=== PATIENT | female | born 1990 | race African-American/Black ===

== ENCOUNTER 2022-07-07 21:17 | Inpatient (IN) | payer MEDICAID ==
[~2022-07-07] VITALS: Ht 175.3 cm; Wt 65.8 kg
--- NOTE | 2022-07-07 22:08 | NUR ---
[id number]. BILAT ARM, BILAT LEG AND SPINE NUMBNESS X 3 DAYS. PT A/OX4. TOLERATING R/A WELL WITH NO RESP DISTRESS. SAFETY MEASURES IN PLACE.
--- NOTE | 2022-07-07 22:29 | NUR ---
DR EMMIE PICHARDO AT PT'S BEDSIDE FOR EVAL
[2022-07-07] MEDS ORDERED: MORPHINE SULFATE INJ 4 MG/ML DISP.SYRIN ONE (22:43)
[2022-07-07] MEDS ORDERED: methylPREDNISolone SOD SUCC 125 MG/2ML VIAL ONE (22:43)
[2022-07-07] MEDS ORDERED: ONDANSETRON HCL/PF 4 MG/2 ML VIAL ONE (22:43)
[2022-07-07] MEDS ORDERED: MORPHINE SULFATE INJ 2 MG/ML DISP.SYRIN IV ONE (23:00)
[2022-07-07] MEDS ORDERED: ONDANSETRON HCL/PF 4 MG/2 ML VIAL IVP ONE (23:00)
[2022-07-07] MEDS ORDERED: methylPREDNISolone SOD SUCC 125 MG/2ML VIAL IV ONE (23:00)
--- NOTE | 2022-07-07 23:10 | NUR ---
RFA #20G S/L BLOOD AND COVID ANTIGEN SWAB COLLECTED AND SENT TO LAB
--- NOTE | 2022-07-07 23:10 | NUR ---
PROVIDED PT WITH URINE CUP; NOT ABLE TO URINATE AT THIS TIME.
[2022-07-07 23:17] LABS: BASOPHILS # (AUTO) 0.1 K/uL (0.0-0.2); BASOPHILS % (AUTO) 0.9 % (0.0-2.0); EOSINOPHILS % (AUTO) 2.2 % (0.0-6.0); HEMATOCRIT 36 % (33-45); HEMOGLOBIN 11.1 g/dL (11.5-14.8); LYMPHOCYTES # (AUTO) 4.3 K/uL (0.8-4.8); LYMPHOCYTES % (AUTO) 30.8 % (20.0-44.0); MEAN CORPUSCULAR HGB CONC 31 g/dl (31.0-36.0); MEAN CORPUSCULAR VOLUME 86 fL (82-100); MONOCYTES # (AUTO) 1.1 K/uL (0.1-1.30); MONOCYTES % (AUTO) 8.1 % (2.0-12.0); PLATELET COUNT (AUTO) 253 K/uL (150-450); RED BLOOD CELL COUNT(AUTO) 4.19 MIL/uL (4.0-5.2); WHITE BLOOD COUNT (AUTO) 13.8 K/uL (4.3-11.0)
[2022-07-07 23:27] LABS: CALCIUM, SERUM 9.1 mg/dL (8.5-10.1); CREATININE 0.6 mg/dL (0.6-1.3); POTASSIUM 3.4 mmol/L (3.5-5.1)
[2022-07-07 23:37] LABS: ALBUMIN 2.8 g/dL (3.4-5.0); BILIRUBIN,DIRECT 0.2 mg/dL (0.0-0.2); BILIRUBIN,TOTAL 0.4 mg/dL (0.2-1.0); TOTAL PROTEIN, SERUM 6.3 g/dL (6.4-8.2)
[2022-07-08] MEDS ORDERED: ACETAMINOPHEN 325 MG TABLET PO PRN
[2022-07-08] MEDS ORDERED: Z GUARD REMEDY 4 OZ OINT TP PRN
[2022-07-08] MEDS ORDERED: ONDANSETRON HCL/PF 4 MG/2 ML VIAL IVP PRN
[2022-07-08] MEDS ORDERED: MAGNESIUM HYDROXIDE 30 ML UDC PO PRN
--- NOTE | 2022-07-08 00:13 | NUR ---
ZHANG CAMPA PROBATION OFFICER AT PT'S BEDSIDE FOR EVAL
--- NOTE | 2022-07-08 00:27 | NUR ---
LOG CHAIN WORKER AT PT'S BEDSIDE
--- NOTE | 2022-07-08 00:48 | NUR ---
REPORT GIVEN TO BOOKER BULL FOR KATHLEEN
[2022-07-08] MEDS ORDERED: POTASSIUM CHLORIDE 10 MEQ TABLET.SA PO ONE (00:49)
--- NOTE | 2022-07-08 01:56 | NUR ---
PT BEING TRANSPORTED TO UNIT ON [facility] BY EMT. PT IS IN STABLE CONDITION FOR TRASNPORT. NAD NOTED.
[2022-07-08 02:00] VITALS: BP 113/69
[2022-07-08] MEDS: ENOXAPARIN SODIUM 40 MG/0.4 ML DISP.SYRIN SQ SCH ×2 (02:18→22:04)
[2022-07-08] MEDS: HYDROCODONE/APAP 5/325MG TABLET PO PRN ×2 (02:56→22:05)
--- NOTE | 2022-07-08 03:00 | NUR ---
MS CONSUMER CREDIT COUNSELOR NOTE PATIENT ARRIVED ON UNIT FROM ER AT ABOUT 0205. PATIENT ALERT/ORIENTED X 4, SOME FORGETFULNESS WHEN ANSWERING ADMISSION/MEDICAL HEALTH HISTORY QUESTIONS. PATIENT CAN'T REMEMBER IF SHE GOT FLU VACCINE OR DATES FOR COVID VACCINE. PATIENT C/O OF 7/10 LOW BACK PAIN, NORCO 5-325 MG GIVEN ORDERED. PATIENT STABLE ON RA, NO S/S OF DISTRESS OR SOB NOTED, BREATHING EVEN AND UNLABORED. PATIENT REFUSED STRAIGHT CATH FOR URINE COLLECTION, PUREWICK PLACED ON PATIENT. PATIENT IV ACCESS ON RIGHT WRIST #20G INTACT AND FLUSHING WELL, SALINE LOCKED. PATIENT NOTED WITH BILATERAL HAND RASH, WOUND PHOTO TAKEN AND PLACED IN CHART. PATIENT BELONGINGS DOCUMENTED AND SHEET PLACED IN CHART. ORIENTED PATIENT TO ROOM AND HOW TO USE CALL LIGHT. SAFETY MEASURES IN PLACE: CALL LIGHT WITHIN REACH, SIDE RAILS UP X 2, BED LOCKED IN LOWEST POSITION, BED ALARM ON. WILL CONTINUE TO MONITOR PATIENT
--- NOTE | 2022-07-08 03:58 | NUR ---
MS RN NOTE URINE SAMPLE COLLECTED FOR URINALYSIS AND TEST
--- NOTE | 2022-07-08 06:22 | NUR ---
MS RN CLOSING NOTE PATIENT SLEEPING IN BED, ALERT/ORIENTED X 3, PT ABLE TO MAKE NEEDS KNOWN. PT STABLE ON RA, NO S/S OF DISTRESS OR SOB NOTED, BREATHING EVEN AND UNLABORED. IV ACCESS ON RIGHT WRIST #20G INTACT AND SALINE LOCKED. PUREWICK IN PLACE AND DRAINING KELBY URINE. MEDICATIONS GIVEN ORDERED, PT NEEDS MET THROUGHOUT SHIFT. MRI QUESTIONNAIRE FILLED OUT AND SIGNED BY PATIENT. SAFETY MEASURES IN PLACE: CALL LIGHT WITHIN REACH, SIDE RAILS UP X 2, BED LOCKED IN LOWEST POSITION, HOB ELEVATED, BED ALARM ON . WILL ENDORSE TO DAYSHIFT RN FOR CONTINUITY OF CARE
[2022-07-08 06:32] LABS: BILIRUBIN,URINE 2+ (NEGATIVE); COLOR,URINE ORANGE (YELLOW); LEUKOCYTE ESTERASE ,URINE 2+ (NEGATIVE); NITRITE, URINE NEGATIVE (NEGATIVE); PH,URINE 5.5 (5.0-8.0); PROTEIN,URINE 1+ mg/dl (NEGATIVE); UGLUCOSE NEGATIVE (NEGATIVE)
[2022-07-08 06:35] LABS: BASOPHILS % (AUTO) 0.1 % (0.0-2.0); EOSINOPHILS % (AUTO) 0.1 % (0.0-6.0); HEMATOCRIT 38 % (33-45); HEMOGLOBIN 12.3 g/dL (11.5-14.8); LYMPHOCYTES # (AUTO) 1.1 K/uL (0.8-4.8); LYMPHOCYTES % (AUTO) 11.4 % (20.0-44.0); MEAN CORPUSCULAR HGB CONC 32 g/dl (31.0-36.0); MEAN CORPUSCULAR VOLUME 86 fL (82-100); MONOCYTES # (AUTO) 0.1 K/uL (0.1-1.30); MONOCYTES % (AUTO) 0.7 % (2.0-12.0); NEUTROPHILS # (AUTO) 8.6 K/uL (1.8-8.9); NEUTROPHILS % (AUTO) 87.7 % (43.0-81.0); PLATELET COUNT (AUTO) 238 K/uL (150-450); RED BLOOD CELL COUNT(AUTO) 4.44 MIL/uL (4.0-5.2); WHITE BLOOD COUNT (AUTO) 9.8 K/uL (4.3-11.0)
[2022-07-08 06:42] LABS: CALCIUM, SERUM 9.2 mg/dL (8.5-10.1); CARBON DIOXIDE 24 mmol/L (21-32); CHLORIDE 108 mmol/L (98-107); CREATININE 0.6 mg/dL (0.6-1.3); GLUCOSE 201 mg/dL (74-106); MAGNESIUM 1.7 mg/dL (1.8-2.4); PHOSPHORUS 3.2 mg/dL (2.5-4.9); POTASSIUM 3.6 mmol/L (3.5-5.1); SODIUM SERUM 142 mmol/L (136-145); UREA NITROGEN, BLOOD 9 mg/dL (7-18)
[2022-07-08 06:56] LABS: BACTERIA,URINE Rare /HPF (None Seen); RBC,URINE 0-2 /HPF (0-2); SQUAMOUS EPITHELIAL CELL,UR Few /HPF (None Seen); URINE AMORPHOUS URATE Many /HPF (None Seen)
--- NOTE | 2022-07-08 06:57 | NUR ---
TEXTED DR. MURPHY FOR MRI APPROVAL
--- NOTE | 2022-07-08 07:15 | NUR ---
ms rn received on bed, awake,alert,oriented x4, not in any distress, respirations even and unlabored,no sob noted, lungs are clear,abdomen soft,positive bowel sounds,denies pain at this time,came in w/ paresthesias, back pain,will monitor patient.
[2022-07-08 07:26] LABS: CHOLESTEROL 238 mg/dL (<200); HDL CHOLESTEROL 54 mg/dL (40-60); LDL 171 mg/dL (0-99)
[2022-07-08 07:58] LABS: TRIGLYCERIDES > 150 mg/dL (30-150)
[2022-07-08 08:00] VITALS: BP 96/50
--- NOTE | 2022-07-08 08:45 | NUR ---
ms johnson breakfast served,due meds given, tolerated well.
[2022-07-08] MEDS: Magnesium 1GM/D5W 100ML PREMIX 100 ML IV SCH ×2 (09:43→11:11)
[2022-07-08] MEDS: PANTOPRAZOLE 40 MG TABLET.DR PO SCH (09:43)
[2022-07-08] MEDS: FLUOCINONIDE 0.05% CREAM 60 GM TUBE TP SCH ×2 (09:47→18:25)
[2022-07-08] MEDS ORDERED: HEPA50008 SQ (10:19)
[2022-07-08] MEDS ORDERED: MAGN400O6 PO (10:19)
[2022-07-08] MEDS ORDERED: HYDR-4303 PO (10:19)
[2022-07-08] MEDS ORDERED: GUAI100S11 PO (10:19)
[2022-07-08] MEDS ORDERED: GABA-536 PO (10:19)
[2022-07-08] MEDS ORDERED: HYDR-4076 PO (10:19)
[2022-07-08] MEDS ORDERED: ACET-868 PO (10:19)
[2022-07-08] MEDS ORDERED: EMOL177L7 TP (10:19)
[2022-07-08] MEDS ORDERED: ONDA4TAB5 PO (10:19)
[2022-07-08] MEDS ORDERED: NYST15CR TP (10:19)
--- NOTE | 2022-07-08 14:00 | NUR ---
ms rn patient went down to mri.
[2022-07-08 16:00] VITALS: BP 90/46
--- NOTE | 2022-07-08 17:54 | NUR ---
ms rn on bed, no distress noted, still waiting for mri result,all needs attended.
[2022-07-08 20:00] VITALS: BP 107/53
--- NOTE | 2022-07-09 04:36 | NUR ---
CLOSING NOTES: ALERT AND ORIENTATED X3 MEDICATED @22:00 WITH NORCO TABS 1 FOR LEG PAIN AND FEET PAIN AND THIS WAS HELPFUL AND EFFECTIVE SLEPT THRU THE NIGHT NOTICED HER STRENGTH AND CONTROM IN HER HANDS IS LIMITED MODERATETALY SWALLOW W/O PROBLEMABLE TO MOVE BIT LEGS AND LIFT OFF THE BED EXTREMITITOES WARM TO TOUCH
--- NOTE | 2022-07-09 07:30 | NUR ---
MS RN OPENING NOTE RECEIVED PT AWAKE AND RESTING IN BED. PT IS A/O X3, FORGETFUL. REORIENTED PT NEEDED. PT ABLE TO MAKE NEEDS KNOWN. PT ON ROOM AIR, TOLERATING WELL. NO SOB NOTED. NOT IN ANY SIGN OF RESPIRATORY DISTRESS. IV ACCESS ON RIGHT WRIST G#20 INTACT AND PATENT. SAFETY MEASURES IN PLACE: BED IN LOWEST AND LOCKED POSITION, SIDE RAILS UPX2, BED ALARM ON, AND CALL LIGHT WITHIN REACH. WILL CONTINUE PT WITH PLAN OF CARE.
[2022-07-09 08:00] VITALS: BP 107/76
[2022-07-09] MEDS: PANTOPRAZOLE 40 MG TABLET.DR PO SCH (08:26)
[2022-07-09] MEDS: FLUOCINONIDE 0.05% CREAM 60 GM TUBE TP SCH ×2 (08:28→16:17)
[2022-07-09 16:06] VITALS: BP 117/61
--- NOTE | 2022-07-09 19:05 | NUR ---
MS RN CLOSING NOTE PT AWAKE AND RESTING IN BED. PT IS A/O X3, FORGETFUL. REORIENTED PT NEEDED. PT ABLE TO MAKE NEEDS KNOWN. PT ON ROOM AIR, TOLERATING WELL. NO SOB NOTED. NOT IN ANY SIGN OF RESPIRATORY DISTRESS. IV ACCESS ON RIGHT WRIST G#20 INTACT AND PATENT. ALL NEEDS ATTENDED. KEPT CLEAN AND COMFORTABLE. PT WILL BE DISCHARGE TODAY. TRANSPORTATION SCHOOL ADMINISTRATOR WILL BE AT 1900 PER ULTRASONIC TESTER. VITAL SIGNS TAKEN, STABLE, AND RECORDED. PT REFUSED BODY ASSESSMENT AND PHOTOGRAPHS OF SKIN ISSUES. ALL BELONGINGS ACCOUNTED FOR. DISCHARGED INSTRUCTIONS AND HEALTH TEACHINGS EXPLAINED TO THE PT AND PT VERBALIZED UNDERSTANDING. REPORT GIVEN EARLIER TO [facility]. SAFETY MEASURES IN PLACE: BED IN LOWEST AND LOCKED POSITION, SIDE RAILS UPX2, BED ALARM ON, AND CALL LIGHT WITHIN REACH. WILL ENDORSE TO BLUEPRINT TRIMMER NURSE FOR KATHLEEN AND PT'S DISCHARGE.
--- NOTE | 2022-07-09 19:45 | NUR ---
PT INFORMED OF DISCHARGE INSTRUCTION. PT ID BAND AND IV LINE WAS REMOVED @ 1928. 2 TRANSPORT FR. [facility] PICK-UP THE PT IN A GURNEY. PT IS STABLE, A/O X 4.
== END 2022-07-09 19:20 | DRG 347 ==
LOC: ER 21:42 → MED 07-08 00:22
PROVIDERS: ADMIT Nurse Practitioner Family
DX: M48.00 Spinal stenosis, site unspecified (principal); E44.0 Moderate protein-calorie malnutrition; R20.2 Paresthesia of skin; E87.6 Hypokalemia; Z20.822 Contact with and (suspected) exposure to COVID-19; D72.829 Elevated white blood cell count, unspecified; E88.09 Other disorders of plasma-protein metabolism, not elsewhere classified; F43.9 Reaction to severe stress, unspecified; Z73.6 Limitation of activities due to disability; F17.200 Nicotine dependence, unspecified, uncomplicated; M41.9 Scoliosis, unspecified; R53.1 Weakness
CPT/HCPCS: 36415; 71045-TC; 72141-TC; 72148-TC; 80048-TC; 80061-TC; 80076-TC; 81001; 83690-TC; 83735-TC; 84100-TC; 84703-TC; 85025-TC; 85730-TC; 87086-TC; 97112-TC; 97530-TC; A4223; C9803; G0378; J1650; J2270; J2405; J2930; J3475